=== PATIENT | male | born 1965 | race Caucasian/White ===

== ENCOUNTER 2019-09-08 12:33 | Inpatient (IN) | payer MEDICAID, OTHER ==
[~2019-09-08] VITALS: Ht 175.3 cm; Wt 101.3 kg
[2019-09-08] MEDS ORDERED: LEVE500T53 PO (13:10)
[2019-09-08] MEDS ORDERED: ATOR40TA28 PO (13:10)
[2019-09-08] MEDS ORDERED: INSU100I26 SQ (13:10)
[2019-09-08] MEDS ORDERED: CHOL100018 PO (13:10)
[2019-09-08] MEDS ORDERED: ENOX40DI9 SQ (13:10)
[2019-09-08] MEDS ORDERED: CITA10TA99 PO (13:10)
[2019-09-08] MEDS ORDERED: GABA-1181 PO (13:10)
[2019-09-08] MEDS ORDERED: ISON300 PO (13:10)
[2019-09-08] MEDS ORDERED: RIFA300 PO (13:10)
[2019-09-08 13:40] LABS: BASOPHILS % (AUTO) 0.7 % (0.0-2.0); EOSINOPHILS % (AUTO) 3.2 % (1.0-6.0); HEMATOCRIT 38.9 % (41-53); HEMOGLOBIN 12.4 g/dL (13.5-17.5); LYMPHOCYTES # (AUTO) 2.9 K/uL (1.0-4.8); LYMPHOCYTES % (AUTO) 47.6 % (22.0-44.0); MEAN CORPUSCULAR HEMOGLOBIN 27.5 pg (26.0-34.0); MEAN CORPUSCULAR HGB CONC 31.8 G/dL (31.0-37.0); MEAN CORPUSCULAR VOLUME 86 fL (80-100); MONOCYTES # (AUTO) 0.5 K/uL (0.1-1.0); MONOCYTES % (AUTO) 8.2 % (2.0-9.0); NEUTROPHILS # (AUTO) 2.5 K/uL (1.8-7.7); NEUTROPHILS % (AUTO) 40.3 % (40.0-70.0); PLATELET COUNT (AUTO) 227 K/uL (150-450); RED CELL DISTRIBUTION WIDTH 14.9 % (11.5-14.5)
[2019-09-08 14:19] LABS: ANION GAP 6 mmol/L (8-16); CALCIUM, TOTAL 8.7 mg/dL (8.8-10.5); CARBON DIOXIDE 28 mmol/L (22-29); CHLORIDE 106 mmol/L (98-107); CREATININE 0.95 mg/dL (0.60-1.30); GLOMERULAR FILTR. RATE CALC > 60 mL/min (>60); GLUCOSE,RANDOM 77 mg/dL (70-110); POTASSIUM 4.1 mmol/L (3.5-5.1); SODIUM SERUM 140 mmol/L (136-145); UREA NITROGEN, BLOOD 18 mg/dL (7-18)
[2019-09-08 14:26] LABS: ALANINE AMINOTRANSFERASE 15 U/L (12-78); ALBUMIN 3.6 g/dL (3.4-5.0); ALKALINE PHOSPHATASE 98 U/L (46-116); ASPARTATE AMINOTRANSFERASE 16 U/L (15-37); BILIRUBIN,TOTAL 0.1 mg/dL (0.1-1.0); TOTAL PROTEIN, SERUM 7.4 g/dL (6.4-8.2)
[2019-09-08] MEDS ORDERED: LORazepam 1 MG TABLET PO PRN (16:30)
[2019-09-08] MEDS ORDERED: ZOLPIDEM TARTRATE 10 MG TABLET PO PRN (16:30)
[2019-09-08] MEDS ORDERED: HALOPERIDOL 5 MG TABLET PO PRN (16:30)
[2019-09-08 19:56] LABS: GLUCOSE,POINT OF CARE 173 MG/DL (70-110)
[2019-09-08] MEDS: ATORVASTATIN CALCIUM 40 MG TABLET PO SCH (22:15)
[2019-09-09] MEDS ORDERED: DEXTROSE 50%-WATER 25 GM/50 ML SYRINGE IVP PRN (01:00)
[2019-09-09 05:33] LABS: GLUCOMETER DEV NAME(LOC) 3E.I 2; GLUCOSE,POINT OF CARE 86 MG/DL (70-110)
[2019-09-09] MEDS: CITALOPRAM HYDROBROMIDE 10 MG TABLET PO SCH (08:25)
[2019-09-09] MEDS: GABAPENTIN 300 MG CAPSULE PO SCH ×3 (08:25→17:19)
[2019-09-09] MEDS: LevETIRAcetam 500 MG TABLET PO SCH ×2 (08:25→17:19)
[2019-09-09] MEDS: CHOLECALCIFEROL (VIT D3) 1,000 UNITS [25 MCG] TABLET PO SCH (08:26)
[2019-09-09] MEDS: RIFAMPIN 300 MG CAPSULE PO SCH (08:27)
[2019-09-09] MEDS ORDERED: LOPERAMIDE HCL 2 MG CAPSULE PO PRN (09:15)
[2019-09-09] MEDS ORDERED: PETROLATUM,WHITE 28 GM JELLY TP PRN (09:15)
[2019-09-09] MEDS ORDERED: CloNIDine HCL 0.1 MG TABLET PO PRN (09:15)
[2019-09-09] MEDS ORDERED: MAG HYDROX/AL HYDROX/SIMETH ES 30 ML SUSPENSION UDCUP PO PRN (09:15)
[2019-09-09] MEDS ORDERED: NICOTINE 14 MG/24 HOUR PATCH TD PRN (09:15)
[2019-09-09] MEDS ORDERED: ACETAMINOPHEN 325 MG TABLET PO PRN (09:15)
[2019-09-09] MEDS ORDERED: DOCUSATE SODIUM 100 MG CAPSULE PO PRN (09:15)
[2019-09-09] MEDS ORDERED: IBUPROFEN 400 MG TABLET PO PRN (09:15)
[2019-09-09] MEDS ORDERED: ONDANSETRON HCL 4 MG TABLET PO PRN (09:15)
[2019-09-09] MEDS ORDERED: MAGNESIUM HYDROXIDE SUSPENSION 30 ML UDCUP PO PRN (09:15)
[2019-09-09] MEDS ORDERED: ALBUTEROL SULFATE HFA 90 MCG/PUFF 8 GM INHALER IH PRN (09:15)
[2019-09-09] MEDS ORDERED: GuaiFENesin/D-METHORPHAN [SUGAR-FREE] 200-20MG/10 ML SYRUP UDCUP PO PRN (09:15)
[2019-09-09 09:25] VITALS: BP 150/93
[2019-09-09 11:12] LABS: GLUCOMETER DEV NAME(LOC) 3E.I 2; GLUCOSE,POINT OF CARE 218 MG/DL (70-110)
[2019-09-09] MEDS: INSULIN LISPRO 100 UNITS/ML SQ PRN ×2 (11:40→21:37)
[2019-09-09] MEDS: ENOXAPARIN SODIUM 40 MG/0.4 ML PF SYRINGE SQ SCH (11:42)
[2019-09-09 17:23] VITALS: BP 136/92
[2019-09-09 17:38] LABS: GLUCOMETER DEV NAME(LOC) 3E.I 2; GLUCOSE,POINT OF CARE 90 MG/DL (70-110)
[2019-09-09] MEDS: ATORVASTATIN CALCIUM 40 MG TABLET PO SCH (21:27)
[2019-09-09] MEDS: INSULIN GLARGINE,HUM.REC.ANLOG 100 UNITS/ML SQ SCH (21:36)
[2019-09-09 22:03] LABS: GLUCOMETER DEV NAME(LOC) 3EX.; GLUCOSE,POINT OF CARE 194 MG/DL (70-110)
[2019-09-10 05:39] VITALS: BP 134/78
[2019-09-10 05:53] LABS: GLUCOMETER DEV NAME(LOC) 3E.I 2; GLUCOSE,POINT OF CARE 98 MG/DL (70-110)
[2019-09-10] MEDS: CITALOPRAM HYDROBROMIDE 10 MG TABLET PO SCH (08:31)
[2019-09-10] MEDS: GABAPENTIN 300 MG CAPSULE PO SCH ×3 (08:31→16:27)
[2019-09-10] MEDS: LevETIRAcetam 500 MG TABLET PO SCH ×2 (08:31→16:27)
[2019-09-10] MEDS: CHOLECALCIFEROL (VIT D3) 1,000 UNITS [25 MCG] TABLET PO SCH (08:31)
[2019-09-10] MEDS: RIFAMPIN 300 MG CAPSULE PO SCH (08:32)
[2019-09-10] MEDS: ENOXAPARIN SODIUM 40 MG/0.4 ML PF SYRINGE SQ SCH (08:32)
[2019-09-10 09:28] VITALS: BP 155/96
[2019-09-10 11:59] LABS: GLUCOMETER DEV NAME(LOC) 3E.I 2; GLUCOSE,POINT OF CARE 119 MG/DL (70-110)
[2019-09-10 14:42] VITALS: BP 151/81
[2019-09-10 16:00] VITALS: BP 99/54
[2019-09-10] MEDS: INSULIN LISPRO 100 UNITS/ML SQ PRN (16:29)
[2019-09-10] MEDS: ATORVASTATIN CALCIUM 40 MG TABLET PO SCH (20:41)
[2019-09-10] MEDS: INSULIN GLARGINE,HUM.REC.ANLOG 100 UNITS/ML SQ SCH (20:44)
[2019-09-11 00:37] VITALS: BP 121/68
[2019-09-11 05:31] LABS: GLUCOMETER DEV NAME(LOC) 3E.I 2; GLUCOSE,POINT OF CARE 103 MG/DL (70-110)
[2019-09-11 07:13] LABS: MAGNESIUM 1.8 mg/dL (1.80-2.40); PHOSPHORUS 4.6 mg/dL (2.5-4.9); POTASSIUM 4.3 mmol/L (3.5-5.1)
[2019-09-11] MEDS: GABAPENTIN 300 MG CAPSULE PO SCH ×2 (08:30→12:08)
[2019-09-11] MEDS: LevETIRAcetam 500 MG TABLET PO SCH (08:30)
[2019-09-11] MEDS: CITALOPRAM HYDROBROMIDE 10 MG TABLET PO SCH (08:33)
[2019-09-11] MEDS: RIFAMPIN 300 MG CAPSULE PO SCH (08:33)
[2019-09-11] MEDS: CHOLECALCIFEROL (VIT D3) 1,000 UNITS [25 MCG] TABLET PO SCH (08:33)
[2019-09-11 09:00] VITALS: BP 159/101
[2019-09-11] MEDS ORDERED: ISONIAZID 300 MG TABLET PO SCH (09:00)
[2019-09-11 11:23] LABS: GLUCOMETER DEV NAME(LOC) 3E.I 2; GLUCOSE,POINT OF CARE 159 MG/DL (70-110)
[2019-09-11] MEDS: INSULIN LISPRO 100 UNITS/ML SQ PRN (12:08)
== END 2019-09-11 14:40 | DRG 885 ==
LOC: EMS 12:41 → 3EI 18:44
DX: F33.2 Major depressive disorder, recurrent severe without psychotic features (principal); R45.851 Suicidal ideations; E78.5 Hyperlipidemia, unspecified; G40.909 Epilepsy, unspecified, not intractable, without status epilepticus; I10 Essential (primary) hypertension; I25.2 Old myocardial infarction; E55.9 Vitamin D deficiency, unspecified; E11.9 Type 2 diabetes mellitus without complications; Z79.899 Other long term (current) drug therapy; Z86.15 Personal history of latent tuberculosis infection; Z86.73 Personal history of transient ischemic attack (TIA), and cerebral infarction without residual deficits; Z95.0 Presence of cardiac pacemaker; F41.9 Anxiety disorder, unspecified
CPT/HCPCS: 73521; 83036; 83735; 84100; 84132; 87081; G0480; J1650; J1815; Q0162